=== PATIENT | male | born 1990 | race African-American/Black ===

== ENCOUNTER 2020-09-03 15:15 | Emergency (ER) | payer SELFPAY ==
[~2020-09-03] VITALS: Ht 188 cm; Wt 108.9 kg
[2020-09-03] MEDS ORDERED: TETANUS/DIPHTHERIA TOX ADULT 0.5 ML SYR IM ONE (15:30)
[2020-09-03] MEDS ORDERED: LIDOCAINE 1% W/EPINEPHRINE 20 ML VIAL INJ ONE (15:30)
--- NOTE | 2020-09-03 15:33 | Emergency Department Note ---
History of Present Illnes History of Present Illness Chief Complaint: Skin Rash or Abscess History of Present Illness This is a 30 year old male here for right lateral chest area of pain, erythema, warmth, swelling. Has had a prior history of abscess. Tetanus is out of date. . Historian: Patient Arrival Mode: Car Onset (how long ago): day(s) (2) Location: R chest wall, lateral Quality: ache Radiation: Reports non-radiation Severity: moderate Onset quality: gradual Duration (how long): day(s) (2) Progression: worsening Chronicity: new Context: Denies recent illness, Denies recent surgery Treatments prior to arrival: none Past Medical/Family History Physician Review I have reviewed the patient's past medical and family history. Any updates have been documented here. Past Medical History Recent Fever: No Clinical Suspicion of Infectio: No New/Unexplained Change in Ment: No Past Medical History: None Past Surgical History: None Review of Systems Review of Systems Constitutional: Reports no symptoms EENTM: Reports no symptoms Cardiovascular: Reports no symptoms Respiratory: Reports no symptoms Gastrointestinal: Reports no symptoms Genitourinary: Reports no symptoms Musculoskeletal: Reports no symptoms Integumentary: Reports no symptoms Neurological: Reports no symptoms Psychological: Reports no symptoms Endocrine: Reports no symptoms Hematological/Lymphatic: Reports no symptoms Physical Exam Related Data Triage Vital Signs Vital Signs Date Time Temp Pulse Resp B/P (MAP) Pulse Ox O2 Delivery O2 Flow Rate FiO2 09/03/20 15:23 98.8 109 20 185/109 100 Room Air Physical Exam CONSTITUTIONAL Constitutional: Present well-developed, Present well-nourished HENT HENT: Present normocephalic, Present atraumatic, Present oropharynx clear/moist, Present nose normal HENT L/R: Present left ext ear normal, Present right ext ear normal EYES Eyes: Reports PERRL, Reports conjunctivae normal NECK Neck: Present ROM normal PULMONARY Pulmonary: Present effort normal, Present breath sounds normal CARDIOVASCULAR Cardiovascular: Present regular rhythm, Present heart sounds normal, Present capillary refill normal, Present normal rate GASTROINTESTINAL Abdominal: Present soft, Present nontender, Present bowel sounds normal GENITOURINARY Genitourinary: Present exam deferred SKIN Skin: Present warm, Present dry, Present other (patient with a 3 x 3 cm area of induration and erythema warmth fluctuance to the right lateral chest wall.) MUSCULOSKELETAL Musculoskeletal: Present ROM normal NEUROLOGICAL Neurological: Present alert, Present oriented x 3, Present no gross motor or sensory deficits PSYCHOLOGICAL Psychological: Present mood/affect normal, Present judgement normal Procedures Incision and Drain Emergent situation: No Type of anesthesia: local Risks and benefits discussed: Yes Verbal consent obtained: Yes Consent given by: patient Prepped and draped in sterile: Yes Procedure verified: Yes Side verified: yes Site verified: yes Site marked: yes Type: abscess Size: 3x3cm Site: scalp Skin preparation: Chloraprep Anesthesia method: local infiltration Patient sedated: No Needle aspiration: No Incision type: stab incision Incision depth: submucosal Scalpel blade: 11 Wound management: probed and deloculated, irrigated with saline Drainage: purulent Drainage amount: moderate Wound treatment: wound left open Patient tolerance: tolerated well Procedure attestation: I performed the procedure Assessment & Plan Medical Decision Making MDM She is a 30-year-old with an abscess, I&D, patient to return if worsening. She will remove drain after days. Assessment & Plan Final Impression: (1) Abscess Depart Disposition: HOME, SELF-CARE Last Vital Signs Date Time Temp Pulse Resp B/P (MAP) Pulse Ox O2 Delivery O2 Flow Rate FiO2 09/03/20 15:23 98.8 109 20 185/109 100 Room Air RITU HOWARD MD Sep 03, 2020 15:32
--- NOTE | 2020-09-03 16:32 | NUR ---
DR. HOWARD IN ROOM WITH PATIENT.
[2020-09-03] MEDS ORDERED: CLINDAMYCIN HC150 MG PO (16:44)
== END 2020-09-03 16:58 | disposition home or self-care (01) ==
LOC: ER 16:09
DX: L02.213 Cutaneous abscess of chest wall (principal)
CPT/HCPCS: 90714; 99283

== ENCOUNTER 2020-10-29 00:26 | Emergency (ER) | payer SELFPAY ==
[~2020-10-29] VITALS: Ht 185.4 cm; Wt 115.2 kg
[~2020-10-29 00:26] MED LIST: CLINDAMYCIN HC150 MG PO
[2020-10-29] MEDS ORDERED: CLINDAMYCIN HC150 MG PO (00:31)
[2020-10-29] MEDS ORDERED: ULTRAM50 MG PO (00:31)
== END 2020-10-29 00:52 | disposition home or self-care (01) ==
LOC: ER 00:33
DX: L02.413 Cutaneous abscess of right upper limb (principal)
CPT/HCPCS: 99282

== ENCOUNTER 2022-07-03 02:59 | Emergency (ER) | payer SELFPAY ==
[~2022-07-03] VITALS: Ht 185.4 cm; Wt 111.1 kg
[~2022-07-03 02:59] MED LIST changes: +ULTRAM50 MG PO
== END 2022-07-03 03:28 | disposition home or self-care (01) ==
LOC: ER 03:03
DX: K64.4 Residual hemorrhoidal skin tags (principal); F17.210 Nicotine dependence, cigarettes, uncomplicated
CPT/HCPCS: 99282